=== PATIENT | male | born 1935 | race Asian ===

== ENCOUNTER 2023-10-26 12:06 | Emergency (ER) | payer MEDICARE ==
[~2023-10-26] VITALS: Ht 157.5 cm; Wt 55.0 kg
[2023-10-26 12:13] VITALS: O2SAT 98
[2023-10-26 13:47] LABS: BASOPHILS % 0.7 % (0.0-2.0); EOSINOPHILS % 1.4 % (0.0-5.0); HEMATOCRIT. 43.3 % (42.0-52.0); HEMOGLOBIN. 14.3 g/dL (14.0-18.0); LYMPHOCYTES % 24.4 % (20.0-50.0); MEAN CORPUSCULAR HEMOGLOBIN 28.3 pg (28.0-32.0); MEAN CORPUSCULAR VOLUME 85.6 fL (80.0-94.0); MEAN PLATELET VOLUME 6.9 fl (7.4-10.4); MONOCYTES % 6.7 % (2.0-8.0); NEUTROPHILS % 66.8 % (40.0-76.0); PLATELET 370 x1000/uL (130-400); RED BLOOD CELL COUNT 5.06 mill/uL (4.7-6.1); RED CELL DISTRIBUTION WIDTH 13.6 % (11.6-14.6)
[2023-10-26] MEDS: NAPROXEN 250MG TABLET PO ONE (13:59)
[2023-10-26 14:23] LABS: POTASSIUM 4.4 mEq/L (3.5-5.1)
[2023-10-26 14:24] LABS: CALCIUM 10.1 mg/dL (8.7-10.4)
[2023-10-26 14:29] LABS: CREATININE 1.2 mg/dL (0.6-1.3)
[2023-10-26] MEDS ORDERED: NAPR-681 MT (14:51)
[2023-10-26 15:09] VITALS: BP 118/69; PULSE 69; RESP 18; TEMP 98.1
== END 2023-10-26 15:38 | disposition home or self-care (01) ==
LOC: ER 12:06
DX: M10.9 Gout, unspecified (principal); K13.0 Diseases of lips; I10 Essential (primary) hypertension
CPT/HCPCS: 36415; 73630; 80048; 85025; 99284